=== PATIENT | male | born 1975 | race Caucasian/White ===

== ENCOUNTER 2017-07-08 13:03 | Emergency (ER) | payer OTHER ==
[~2017-07-08] VITALS: Ht 172.7 cm; Wt 72.6 kg
--- NOTE | 2017-07-08 14:36 | ED AMS/SEIZURE/WEAK/DIZZY ---
History of Present Illness General Chief Complaint: Seizure Stated Complaint: BIBA FOR SEIZURE Source: patient Exam Limitations: POOR RECALL OF EVENT Vital Signs & Intake/Output Vital Signs & Intake/Output Vital Signs Date Time Temp Pulse Resp B/P B/P Pulse O2 O2 Flow FiO2 Mean Ox Delivery Rate 07/08 1617 98.5 98 18 135/78 97 Room Air 07/08 1311 97.9 98 17 125/50 Allergies Coded Allergies: Penicillins (UNKNOWN 07/08/17) Reconcile Medications Diclofenac Potassium 50 MG TABLET 1 TAB PO TID PRN PAIN Triage Note: PT BIBA FROM WORK S/P WITNESSED GRANDMAL SEIZURED. PT POST ICTAL ON ARRIVAL. DOES NOT RECALL EVENT AND STATES HE HAS NO HX OF SEIZURES. WITNESS STATES "HE WAS FOAMING AT THE MOUTH A LOT" AND ESTIMATES IT LASTED ABOUT 5 MINUTES PT HAS VISIBLE BUMP TO LEFT SIDE OF FOREHEAD AND C/O 5/10 HEADACHE. Triage Nurses Notes Reviewed? yes HPI: Patient presents for evaluation of a seizure. According to a coworker who witnessed the episode the patient was noted to be leaning over with his head bent while standing at work (patient is an aviation electrician). His coworker noted that the patient was drooling and then began shaking and foaming at the mouth. He fell to the floor and began having tremors for about 5 minutes. He asked some coworkers to go to a walk-in clinic next door to obtain medical attention. 911 was called and the patient continued to have seizures until the arrival of EMS. The episode spontaneously resolved. The patient has poor recall of the event and his last recollection is being questioned by the paramedics en route to the hospital. According to the patient's coworker he was confused after the incident. He struck his left jewish on a wire reel when he fell. Past History Travel History Traveled to [place] past 21 day No Medical History Any Pertinent Medical History? see below for history Neurological: NONE Surgical History Surgical History: non-contributory Psychosocial History What is your primary language Syriac Tobacco Use: Current Daily Use Daily Tobacco Use Amount/Type: => 5 Cigarettes daily ETOH Use: 4 BEERS/DAY Family History Hx Contributory? No Review of Systems Review of Systems Constitutional: Reports: no symptoms. EENTM: Reports: no symptoms. Respiratory: Reports: no symptoms. Cardiovascular: Reports: no symptoms. GI: Reports: no symptoms. Genitourinary: Reports: no symptoms. Musculoskeletal: Reports: no symptoms. Skin: Reports: no symptoms. Neurological/Psychological: Reports: no symptoms. Hematologic/Endocrine: Reports: no symptoms. Immunologic/Allergic: Reports: no symptoms. All Other Systems: Reviewed and Negative Physical Exam Physical Exam General Appearance: see below Comments: Gen.: Well-nourished, well-developed, no acute respiratory distress. Head: Normocephalic, atraumatic. Eyes: Normal inspection bilaterally, PERRLA, EOMI Ears: Normal inspection bilaterally Nose: Normal inspection Throat/mouth : Moist mucosa Neck: Supple, full range of motion, no goiter, no carotid bruits, equal carotid pulses Heart: Regular rate and rhythm, no murmurs rubs or gallops Lungs: Clear to auscultation bilaterally with normal air entry Chest: Nontender Back: Normal range of motion Abdomen: Nondistended, normal bowel sounds Extremities: Normal range of motion grossly, equal radial pulses, no cyanosis clubbing or edema, equal hand grasp, no pronator drift, no dysmetria Neurologic: Cranial nerves 2 through 12 intact, speech is clear and without apparent aphasia, gait is stable Skin: warm and dry Psychiatric: Calm, cooperative, no apparent delusions or hallucinations Core Measures ACS in differential dx? No CVA/TIA Diagnosis No Sepsis Present: No Sepsis Focused Exam Completed? No Progress Differential Diagnosis: CVA/stroke, dehydration, electrolyte imbalance, hypoglycemia, intracranial Hem., intracranial mass/tumor, seizure disorder Plan of Care: Orders Procedure Date/time Status Saline Lock 07/08 143 Active URINE DRUGS OF ABUSE 07/08 1436 Complete URINALYSIS 07/08 1436 Complete THYROID STIMULATING HORMONE 07/08 1436 Complete PHOSPHORUS 07/08 1436 Complete MAGNESIUM 07/08 1436 Complete ETHANOL 07/08 143 Complete COMPREHENSIVE METABOLIC PANEL 07/08 143 Complete CBC WITHOUT DIFFERENTIAL 07/08 143 Complete Laboratory Tests 07/08/17 1500: Serum Alcohol < 10.0 07/08/17 1500: Anion Gap 9, Estimated GFR > 60, BUN/Creatinine Ratio 22.9, Glucose 98, Calcium 9.5, Phosphorus 2.9, Magnesium 2.2, Total Bilirubin 0.8, AST 30, ALT 33, Alkaline Phosphatase 47, Total Protein 7.1, Albumin 4.6, Globulin 2.5, Albumin/ Globulin Ratio 1.8, TSH 0.605, CBC w Diff MAN DIFF ORDERED, RBC 4.76, MCV 88.7, MCH 30.7, MCHC 34.6, RDW 13.1, MPV 7.6, Gran % 88.1 H, Lymphocytes % 6.9 L, Monocytes % 4.8, Eosinophils % 0, Basophils % 0.2, Absolute Granulocytes 17.6 H , Segmented Neutrophils 89 H, Band Neutrophils 1, Absolute Lymphocytes 1.4, Lymphocytes 9 L, Monocytes 1 L, Absolute Monocytes 1.0 H, Absolute Eosinophils 0, Absolute Basophils 0, Platelet Estimate VERIFIED BY SMEAR, Normocytic RBCs VERIFIED, Normochromic RBCs VERIFIED, Urine Opiates Screen 154, Methadone Screen 42, Barbiturate Screen < 60, Ur Phencyclidine Scrn < 6.00, Amphetamines Screen < 100, U Benzodiazepines Scrn < 85, Urine Cocaine Screen < 50, Urine Cannabis Screen > 80.00 H, Urine Color YEL, Urine Clarity CLEAR, Urine pH 6.0, Ur Specific [place] >= 1.030, Urine Protein 30 H, Urine Ketones NEG, Urine Nitrite NEG, Urine Bilirubin NEG, Urine Urobilinogen 0.2, Ur Leukocyte Esterase NEG, Ur Microscopic SEDIMENT EXAMINED, Urine RBC 3-5, Urine WBC 3-5 H, Ur Epithelial Cells FEW, Urine Bacteria FEW H, Urine Hemoglobin SMALL H, Urine Glucose NEG Diagnostic Imaging: Discussed w/RAD: CT Scan. Radiology Impression: PATIENT: RENATA HENRY PRESENT AGE: 42 PATIENT ACCOUNT NO: [id number] : 73 LOCATION: [facility] ORDERING PHYSICIAN: Tenzin Beal MD SERVICE DATE: 07/08/17 EXAM TYPE : CAT - CT HEAD WO IV CONTRAST CT HEAD WITHOUT CONTRAST CLINICAL INFORMATION: Status post seizure and fall with left temporal abrasion. COMPARISON: None available. TECHNIQUE: Contiguous axial imaging was performed from the skull base to vertex without intravenous administration of contrast. FINDINGS: There is no intracranial hemorrhage, hydrocephalus, extra-axial surface collection, midline shift, or other herniation pattern. Gunter to white matter differentiation is diffusely maintained without evidence of an evolved acute territorial infarct. The basilar cisterns are preserved. Mild anterior left frontal scalp swelling. No acute osseous abnormality. The paranasal sinuses and the mastoid air cells are well-aerated. IMPRESSION: No acute intracranial abnormality. Mild anterior left frontal scalp swelling. DICTATED BY: Tenzin Perez MD DATE/TIME DICTATED: 07/08/171504 INSTRUMENT INSTALLER:ROBERT DATE/TIME TRANSCRIBED:07/08/171504 CONFIDENTIAL, DO NOT COPY WITHOUT APPROPRIATE AUTHORIZATION. <Electronically signed in Other Vendor System> SIGNED BY: Tenzin Perez MD 07/08/17 1516 Initial ED EKG: none Comments: 07/08/2017 5:41:47 PM patient is eager to leave the emergency department now that his mother has arrived. I have updated him on testing. I do not feel given this one isolated seizure that he requires antiepileptic medication initiated. He lives in the [facility] and will follow up with both the primary care physician and a neurologist for reevaluation and further testing. Departure Departure Disposition: HOME OR SELF CARE Condition: Stable Clinical Impression Primary Impression: Seizure grand mal Secondary Impressions: Contusion, Minor head trauma Referrals: Patient Has No Primary Care Dr (PCP/Family) Additional Instructions: Follow-up with a primary care physician and neurologist as soon as possible for reevaluation and further testing such as an EEG. Diclofenac as needed for pain. Cool compress to any areas of swelling over the next 48 hours. Return if any concerns or sudden worsening. Please note that there might be incidental findings in your evaluation that are unrelated to the current emergency department visit. Please notify your primary care doctor about this emergency department visit in order to obtain and review all of the testing performed so that these incidental findings can be monitored as needed. If you had an x-ray performed, please understand that some fractures may not be seen on the initial set of x-rays. If your symptoms persist you might need a repeat set of x-rays to check for such a fracture. If you had a laceration evaluated, please understand that foreign bodies such as glass or wood may not be visible to the naked eye or on plain x-rays. If the wound becomes red, swollen, increasingly more painful or if there is any drainage from the wound, please have it reevaluated by a physician for the possibility of a retained foreign body. If you're unable to follow up as outlined in the discharge instructions please return to the emergency department. Thank you for choosing the [facility] Emergency Department for your care. It was a pleasure to serve you today. Tenzin Beal M.D. [facility] Departure Forms: Customer Survey General Discharge Information Prescriptions: Current Visit Scripts Diclofenac Potassium 1 TAB PO TID PRN PAIN #30 TAB
[2017-07-08 15:08] LABS: ABSOLUTE BASOPHIL COUNT 0 /CUMM (0.0-0.2); ABSOLUTE EOSINOPHIL COUNT 0 /CUMM (0.0-0.7); ABSOLUTE GRANULOCYTE CT 17.6 /CUMM (1.4-6.5); ABSOLUTE LYMPH COUNT 1.4 /CUMM (1.2-3.4); BASOPHIL % 0.2 % (0.0-2.0); EOSINOPHIL % 0 % (0-5); GRANULOCYTE % 88.1 % (42.2-75.2); HEMATOCRIT 42.2 % (42-52); MEAN CORPUSCULAR HGB 30.7 PG (27.0-31.0); MEAN CORPUSCULAR HGB CONC 34.6 G/DL (33.0-37.0); MEAN CORPUSCULAR VOLUME 88.7 FL (80.0-94.0); MEAN PLATELET VOLUME 7.6 FL (7.4-10.4); PLATELET COUNT 349 /CUMM (130-400); RBC DISTRIBUTION WIDTH 13.1 % (11.5-14.5); RED BLOOD CELL CT 4.76 /CUMM (4.70-6.10)
--- NOTE | 2017-07-08 15:16 | CT SCAN REPORT ---
CT HEAD WITHOUT CONTRAST CLINICAL INFORMATION: Status post seizure and fall with left temporal abrasion. COMPARISON: None available. TECHNIQUE: Contiguous axial imaging was performed from the skull base to vertex without intravenous administration of contrast. FINDINGS: There is no intracranial hemorrhage, hydrocephalus, extra-axial surface collection, midline shift, or other herniation pattern. Gunter to white matter differentiation is diffusely maintained without evidence of an evolved acute territorial infarct. The basilar cisterns are preserved. Mild anterior left frontal scalp swelling. No acute osseous abnormality. The paranasal sinuses and the mastoid air cells are well-aerated. IMPRESSION: No acute intracranial abnormality. Mild anterior left frontal scalp swelling.
[2017-07-08 16:17] VITALS: BP 135/78
[2017-07-08] MEDS ORDERED: DICLOFENAC POTA50 M1 PO (17:46)
== END 2017-07-08 17:56 ==
LOC: ERH 13:03
PROVIDERS: Emergency Medicine
DX: G40.409 Other generalized epilepsy and epileptic syndromes, not intractable, without status epilepticus (principal); S09.90XA Unspecified injury of head, initial encounter; S00.93XA Contusion of unspecified part of head, initial encounter; W22.8XXA Striking against or struck by other objects, initial encounter; Y92.9 Unspecified place or not applicable; Y93.9 Activity, unspecified
CPT/HCPCS: 80307; 81001; G0480